=== PATIENT | male | born 1990 | race African-American/Black ===

== ENCOUNTER 2017-01-03 12:16 | Emergency (ER) | payer OTHER ==
[2017-01-03 12:21] VITALS: BP 150/81; PULSE 79; TEMP 98; BMI 30.7
[2017-01-03] MEDS ORDERED: SULFAMETHOXAZOLE/TRIMETHOPRIM 800MG/160MG D.S. TABLET PO ONE (13:35)
--- NOTE | 2017-01-03 13:35 | PDOC ---
History of Present Illness - General Chief Complaint: Abscess Boil Stated Complaint: ABSCESS BOIL Time Seen by Provider: 01/03/17 13:12 History Source: Patient Exam Limitations: No Limitations - History of Present Illness Initial Comments: CHIEF COMPLAINT: 26 y/o afebrile male with no significant PMH c/o right lower leg abscess x 3 days. HISTORY OF PRESENT ILLNESS: The patient states he noticed an abscess on his right lower leg 3 days ago at work. He states he popped it and it was draining but then closed again and is now painful. He denies f/c, n/v/d, streaking and all other symptoms. He denies bug bite and has not spent any time in the ha[place]/ grass recently. Vital signs on arrival are within normal limits. REVIEW OF SYSTEMS: GENERAL/CONSTITUTIONAL: No fever/chills. No weakness. No weight change. MUSCULOSKELETAL: No joint or muscle swelling or pain. No neck or back pain. SKIN: Painful pimple to right lower leg. NEUROLOGIC: No headache, vertigo, loss of consciousness, or loss of sensation. PHYSICAL EXAM: VITAL_SIGNS: within normal limits GENERAL_APPEARANCE: alert, cooperative, mild obvious discomfort. MENTAL_STATUS: speech clear, oriented X 3, responds appropriately to questions. NEURO: motor intact and sensory intact in injured extremity. EXTREMITIES: 0.5cm raised, white head on right lateral, middle lower right leg with 5cm in diameter of surrounding erythema that is warm. No streaking. No active drainage. SKIN: warm, dry, good color. Past History - Past Medical History Allergies/Adverse Reactions: Allergies Allergy/AdvReac Type Severity Reaction Status Date / Time No Known Allergies Allergy Verified 01/03/17 12:17 Home Medications: Ambulatory Orders Hydrocortisone 0.5% Cream [Hytone 0.5% Cream -] 1 applic TP QID #1 tube Sulfamethoxazole/Trimethoprim [Bactrim Ds -] 1 tab PO BID #20 tablet 01/03/17 Other medical history: none - Surgical History Appendectomy: Yes - Psycho/Social/Smoking Cessation Hx Anxiety: No Suicidal Ideation: No Smoking History: Never smoked Have you smoked in the past 12 months: No Information on smoking cessation initiated: No Hx Alcohol Use: No Drug/Substance Use Hx: Yes (derek) Substance Use Type: Marijuana *Physical Exam - Vital Signs Last Vital Signs Temp Pulse Resp BP Pulse Ox 98.0 F 79 18 150/81 100 01/03/17 12:18 01/03/17 12:18 01/03/17 12:18 01/03/17 12:18 01/03/17 12:18 Procedures - Incision and Drainage I&D Site: Right: Leg Betadine cleansed: Yes Blade Size: 18 gauge needle Attempts: 1 Plain Packing: No Dressing: No Medical Decision Making - Medical Decision Making A/P: 26 y/o male with right lower leg abscess. Used an 18 gauge needle to aspirate 0.5cc of purulent discharge from the abscess. Sent wound culture. Will send rx for bactrim and instructed patient to take entire course. Instructed him to apply hot compresses to affected area to keep it open and draining. Pt asked for an rx for hydrocortisone cream for an itchy rash he's had on his foot for 1 year - will send and will provide a dermatology referral. Pt instructed to return to the ER with any worsening or concerning symptoms. The patient verbalizes understanding of all instructions, has no further questions and is awaiting discharge. *DC/Admit/Observation/Transfer Diagnosis at time of Disposition: Abscess - Discharge Dispostion Disposition: HOME Condition at time of disposition: Improved - Prescriptions Prescriptions: Sulfamethoxazole/Trimethoprim [Bactrim Ds -] 1 tab PO BID #20 tablet Hydrocortisone 0.5% Cream [Hytone 0.5% Cream -] 1 applic TP QID #1 tube - Referrals Referrals: Brandt Anders [Primary Care Provider] - Tami Bird MD [Staff Physician] - - Patient Instructions Printed Discharge Instructions: DI for Incision and Drainage of a Skin Abscess Additional Instructions: Discharge Instructions: -Take antibiotics as prescribed for entire 10 days -Apply hot compresses to affected area to keep open and draining -Return to the ER with any worsening or concerning symptoms
[2017-01-03] MEDS ORDERED: SULFAMETHOXAZOLE/TRIMETHOPRIM 800MG/160MG D.S. TABLET ONE (13:38)
--- NOTE | 2017-01-04 12:19 | PDOC ---
Patient Follow-up (Call Back) - Post ED Follow - Up Condition at time of discharge: Improved Disposition at time of original discharge: HOME Reason for Call Back: Abnwl. Microbiology (+ Presumptive MRSA patient on Bactrim. Appropriate treatment.)
== END 2017-01-03 13:47 | disposition home or self-care (01) ==
LOC: JERFT 12:16
PROC: 0H9KXZZ Drainage of Right Lower Leg Skin, External Approach (ICD-10-PCS; principal; 2017-01-03)
DX: L02.415 Cutaneous abscess of right lower limb (principal)
CPT/HCPCS: 10160; 87070; 87186; 87205; 99281-25

== ENCOUNTER 2017-05-21 13:51 | Emergency (ER) | payer OTHER ==
[2017-05-21 14:00] VITALS: BP 142/52; PULSE 80; TEMP 98.6; BMI 32.1
[2017-05-21] MEDS ORDERED: KETOROLAC TROMETHAMINE 60 MG/2 ML VIAL IM ONE (14:47)
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
== END 2017-05-21 15:16 | disposition home or self-care (01) ==
LOC: JERFT 13:51
PROC: 3E0233Z Introduction of Anti-inflammatory into Muscle, Percutaneous Approach (ICD-10-PCS; principal; 2017-05-21)
DX: S46.812A Strain of other muscles, fascia and tendons at shoulder and upper arm level, left arm, initial encounter (principal); V49.49XA Driver injured in collision with other motor vehicles in traffic accident, initial encounter; Y92.488 Other paved roadways as the place of occurrence of the external cause; Y93.89 Activity, other specified; Y99.8 Other external cause status
CPT/HCPCS: 99281-25

== ENCOUNTER 2022-09-03 04:24 | Emergency (ER) | payer OTHER ==
[2022-09-03 04:42] VITALS: BP 145/93; PULSE 74; RESP 20; TEMP 97.7; BMI 33.5
[2022-09-03] MEDS ORDERED: KETOROLAC TROMETHAMINE 30 MG/1 ML VIAL IM ONE (05:24)
[2022-09-03] MEDS ORDERED: BUPIVACAINE HCL/PF 0.5% (5MG/ML) 10 ML VIAL ONE (05:28)
[2022-09-03] MEDS ORDERED: BUPIVACAINE HCL/PF 0.5% (5 MG/ML) 30 ML VIAL IJ ONE (05:28)
[2022-09-03] MEDS ORDERED: ACETAMINOPHEN 325 MG TABLET (FP) PO ONE (05:30)
[2022-09-03] MEDS ORDERED: ACETAMINOPHEN 325 MG TABLET (FP) ONE (05:32)
== END 2022-09-03 06:28 | disposition home or self-care (01) ==
LOC: JER 04:24
PROC: 3E0T3BZ Introduction of Anesthetic Agent into Peripheral Nerves and Plexi, Percutaneous Approach (ICD-10-PCS; principal; 2022-09-03)
DX: K02.9 Dental caries, unspecified (principal); K08.89 Other specified disorders of teeth and supporting structures
CPT/HCPCS: 99283-25

== ENCOUNTER 2024-05-14 03:11 | Emergency (ER) | payer OTHER ==
[2024-05-14 03:22] VITALS: BP 145/91; PULSE 70; RESP 20; TEMP 98.4; BMI 33.5
[2024-05-14] MEDS ORDERED: ACETAMINOPHEN 325 MG TABLET (FP) ONE (03:50)
[2024-05-14] MEDS ORDERED: KETOROLAC TROMETHAMINE 30 MG/1 ML VIAL ONE (03:51)
[2024-05-14] MEDS: ACETAMINOPHEN 500 MG TABLET (FP) PO ONE (03:58)
[2024-05-14] MEDS: KETOROLAC TROMETHAMINE 30 MG/1 ML VIAL IM ONE (03:58)
== END 2024-05-14 04:40 | disposition home or self-care (01) ==
LOC: JER 03:11
PROC: 3E0133Z Introduction of Anti-inflammatory into Subcutaneous Tissue, Percutaneous Approach (ICD-10-PCS; principal; 2024-05-14)
DX: R51.9 Headache, unspecified (principal); K08.89 Other specified disorders of teeth and supporting structures
CPT/HCPCS: 99284-25